=== PATIENT | male | born 1980 | race Caucasian/White ===

== ENCOUNTER 2016-12-05 18:34 | Emergency (ER) | payer OTHER ==
[~2016-12-05 18:34] MED LIST: HYDR-3533 PO; TAMS0.4C67 PO
[2016-12-05 18:36] VITALS: BP 151/100; PULSE 88; RESP 20; TEMP 99.4; O2SAT 100
[2016-12-05] MEDS ORDERED: TIZA4CAP3 PO (19:02)
[2016-12-05] MEDS ORDERED: CLON0.2T PO (19:02)
[2016-12-05] MEDS ORDERED: AMIT100T2 PO (19:02)
[2016-12-05] MEDS ORDERED: SUBO8MIS SL (19:02)
[2016-12-05] MEDS ORDERED: MINERAL OIL ENEMA 118 ML BTL RECTAL ONE (19:15)
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
[2016-12-05] MEDS ORDERED: MAGNESIUM CITRATE SOLN 300 ML BTL PO ONE (19:45)
[2016-12-05] MEDS: SODIUM CHLOR 0.9% 1000 ML INJ 1,000 ML IV SCH ×2 (19:50→20:15)
[2016-12-05 20:00] LABS: AUTOMATED NEUTROPHIL # 4.3 TH/MM3 (1.8-7.7); BASOPHIL % 0.7 % (0.0-2.0); EOSINOPHIL # 0.1 TH/MM3 (0-0.4); HEMATOCRIT 44.5 % (39.0-51.0); HEMO FLAGS DIFF FINAL; LYMPH % 25.2 % (9.0-44.0); LYMPHOCYTE # 1.6 TH/MM3 (1.0-4.8); MEAN CELL VOLUME 81.6 FL (80.0-100.0); MEAN CORPUSCULAR HEMOGLOBIN 27.6 PG (27.0-34.0); MEAN CORPUSCULAR HGB CONC 33.9 % (32.0-36.0); MONO % 8.4 % (0.0-8.0); NEUT % 63.7 % (16.0-70.0); PLATELET COUNT 260 TH/MM3 (150-450); RED BLOOD COUNT 5.45 MIL/MM3 (4.50-5.90); RED CELL DISTRIBUTION WIDTH 13.3 % (11.6-17.2); WHITE BLOOD COUNT 6.5 TH/MM3 (4.0-11.0)
[2016-12-05 20:11] LABS: BICARBONATE 29.3 MEQ/L (21.0-32.0)
[2016-12-05 20:35] VITALS: BP 134/74; PULSE 80; RESP 20; O2SAT 97
[2016-12-05 21:50] VITALS: BP 132/79
== END 2016-12-05 21:54 | disposition home or self-care (01) ==
LOC: PHED 18:34
DX: K59.03 Drug induced constipation (principal); T40.4X5A Adverse effect of other synthetic narcotics, initial encounter
CPT/HCPCS: 80048; 85025; 96360; 99284; J7030